=== PATIENT | male | born 1975 | race Caucasian/White ===

== ENCOUNTER 2016-07-12 13:14 | Emergency (ER) | payer BC, OTHER ==
[2016-07-12] MEDS ORDERED: DUONEB INH ONE ×2 (14:45)
[2016-07-12] MEDS ORDERED: ALBUTEROL HFA INH ONE (17:39)
== END 2016-07-12 18:39 | disposition home or self-care (01) ==
LOC: ER 13:14
DX: J44.1 Chronic obstructive pulmonary disease with (acute) exacerbation (principal)
CPT/HCPCS: 36415; 71020; 80053; 85025; 87804; 93005; 94640